=== PATIENT | male | born 1950 | race Caucasian/White ===

== ENCOUNTER 2022-06-30 10:19 | Emergency (ER) | payer MEDICARE, SELFPAY ==
[2022-06-30 10:27] VITALS: BP 161/83; PULSE 80; RESP 16; TEMP 36.6; O2SAT 96
--- NOTE | 2022-06-30 10:44 | ED.WOUNDLAC ---
HPI - Wound/Laceration General Chief Complaint: Wound/Laceration Stated Complaint: right thumb laceration Time Seen by Provider: 06/30/22 10:28 Source: patient Mode of arrival: ambulatory Limitations: no limitations History of Present Illness HPI narrative: This is a 71-year-old male that presents to the emergency department for a laceration to his right thumb sustained just prior to arrival. Reports his knife slipped and he cut his thumb. Reports bleeding and pain to the area. He is not up-to-date on tetanus. Denies decreased range of motion or numbness. Related Data Allergies Allergy/AdvReac Type Severity Reaction Status Date / Time Penicillins Allergy Rash Verified 06/30/22 10:30 Review of Systems Review of Systems: CONSTITUTIONAL: Denies fever SKIN: Reports laceration MUSCULOSKELETAL: Denies joint pain, or myalgia. NEUROLOGIC: Denies numbness All systems reviewed & are unremarkable except as noted in HPI and below PMFSH Past Medical History Medical History (Updated 06/30/22 @ 11:20 by Suzie Bermeo PA-C) History of BPH Social History Social History (Updated 06/30/22 @ 10:45 by Suzie Bermeo PA-C) Substance use: never Exam Narrative: GENERAL: Well-appearing, well-nourished, and in no acute distress. HEAD: Normocephalic, atraumatic. EYES: EOMI. EXTREMITIES: Normal range of motion. No edema. Right thumb with 2.5cm linear laceration into subcutaneous tissue to the proximal phalanx SKIN: Warm, dry, no rash. NEURO: No focal deficits. Alert and oriented x3. PSYCH: Normal mood and affect Course Vital Signs Vital signs: Vital Signs Temperature 97.8 F 06/30/22 10:27 Pulse Rate 80 06/30/22 10:27 Respiratory Rate 16 06/30/22 10:27 Blood Pressure 161/83 H 06/30/22 10:27 Pulse Oximetry 96 06/30/22 10:27 Oxygen Delivery Room Air 06/30/22 10:27 Temperature 97.8 F 06/30/22 10:27 Pulse Rate 80 06/30/22 10:27 Respiratory Rate 16 06/30/22 10:27 Blood Pressure 161/83 H 06/30/22 10:27 Pulse Oximetry 96 06/30/22 10:27 Oxygen Delivery Room Air 06/30/22 10:27 Procedures Laceration Laceration 1: Date: 06/30/22 Time: 11:19 Site: hand Side (If applicable): right Size (cm): 2.5 Description: linear Depth: simple, single layer Local Anesthetic: lidocaine 2% Amount of anesthesia used (mL): 3 Pre-repair: wound explored and irrigated extensively ====== Skin Level ====== Skin layer closed with: nylon Size (cm): 4-0 Number of sutures: 4 Technique: simple, interrupted ====== Subcutaneous Layer ====== ====== Muscle Layer ====== ====== Tendon Layer ====== MDM - Wound/Laceration MDM Narrative Medical decision making narrative: Patient presents the emergency department for a laceration of the right thumb sustained just prior to arrival. His wound was thoroughly irrigated and closed with sutures. He was updated on tetanus. He was educated on wound care. He is neurovascularly intact without signs of tendinous injury. He is to follow-up with primary care provider. He was given warnings to return to the ER Critical Care Time Critical Care Time Critical Care Time: No Discharge Plan Discharge Clinical Impression: Laceration Patient Disposition: Home, Self-Care Condition: Stable Instructions: Antibiotic Form, Care For Your Stitches (ED), Laceration (ED) Additional Instructions: Return to the emergency department if you experience fever, redness or swelling of your wound, abnormal drainage from your wound, or any other symptoms that are concerning to you. Apply antibiotic ointment daily. Do not soak the wound. Clean with mild soap and water daily. Take oral antibiotic as prescribed Follow-up with your primary care doctor for suture removal in 10-14 days. Prescriptions: New clindamycin HCl 300 mg capsule 300 mg PO Q8H 5 Days Qty: 15 0
[2022-06-30] MEDS: TETANUS,DIPHTHERIA,AC PERTUSSIS ADULT (0.5 ML) BOOSTRIX IM (10:52)
== END 2022-06-30 10:35 | disposition home or self-care (01) ==
PROVIDERS: Emergency Provider Emergency Medicine
DX: S61.011A Laceration without foreign body of right thumb without damage to nail, initial encounter (principal); Z23 Encounter for immunization; N40.0 Benign prostatic hyperplasia without lower urinary tract symptoms; W26.0XXA Contact with knife, initial encounter
CPT/HCPCS: 12001; 90471; 90715; 99283